=== PATIENT | male | born 1945 | race Asian ===

== ENCOUNTER 2016-10-07 02:08 | Inpatient (IN) | payer MEDICARE, OTHER ==
[~2016-10-07] VITALS: Ht 170.2 cm; Wt 58.7 kg
[~2016-10-07 02:08] MED LIST: ACET-784 GT; AMLO2.5T29 PO; AMOX200S7 PO; ASPI-891 PO; AUD NEB; BENZ1TAB10 GT; BISA10S PR; FAMO-136 PO; FERSL GT; GUAI100S13 GT; IPRNEB IH; K1015L PO; LANS30TA4 GT; LEVO500 PO; LORA0.5T2 PO; MOM30 PO; MULT-1238 PO; ONDA4 PO; PRED5 PO; PROP1DRO OU; RAMI5CAP21 GT; RISP0.5T13 GT; RISP0.5T5 GT; ROSU5TAB3 GT; VITAD1000 GT; ZOLP5 GT; [UNRECOGNIZED DRUG - CODE] GT
[2016-10-07] MEDS ORDERED: SODIUM CHLORIDE 0.9% 500 ML IV ONE ×2 (02:15→03:30)
[2016-10-07] MEDS ORDERED: ACETAMINOPHEN 1000 MG/ISO-OSM 100 ML IV ONE (02:15)
[2016-10-07] MEDS ORDERED: DEXL30CA3 PO (02:25)
[2016-10-07] MEDS ORDERED: CLON.1 PO (02:25)
[2016-10-07] MEDS ORDERED: CEFX1I IV (02:25)
[2016-10-07] MEDS ORDERED: 0.9% SODIUM CHLORIDE 5 ML NEB SOLUTION NEB ONE (02:28)
[2016-10-07 02:29] LABS: BASOPHILS # (AUTO) 0.02 K/uL (0.00-0.20); BASOPHILS % (AUTO) 0.2 % (0.0-2.0); EOSINOPHILS # (AUTO) 0.01 K/uL (0.00-0.70); HEMATOCRIT 36.4 % (41-53); HEMOGLOBIN 12.2 g/dL (13.5-17.5); LYMPHOCYTES # (AUTO) 1.9 K/uL (1.0-4.8); LYMPHOCYTES % (AUTO) 15.1 % (22.0-44.0); MEAN CORPUSCULAR HEMOGLOBIN 31.5 pg (26.0-34.0); MEAN CORPUSCULAR HGB CONC 33.5 G/dL (31.0-37.0); MEAN CORPUSCULAR VOLUME 94 fL (80-100); MONOCYTES # (AUTO) 0.7 K/uL (0.1-1.0); MONOCYTES % (AUTO) 5.2 % (2.0-9.0); NEUTROPHILS # (AUTO) 9.9 K/uL (1.8-7.7); NEUTROPHILS % (AUTO) 79.4 % (40.0-70.0); PLATELET COUNT (AUTO) 169 K/uL (150-450); RED BLOOD CELL COUNT(AUTO) 3.88 MIL/uL (4.50-5.90); RED CELL DISTRIBUTION WIDTH 12.4 % (11.5-14.5); WHITE BLOOD COUNT (AUTO) 12.4 K/uL (4.5-11.0)
[2016-10-07] MEDS ORDERED: IPRATROPIUM BROMIDE 0.5 MG/2.5 ML NEB SOLUTION NEB ONE (02:30)
[2016-10-07] MEDS ORDERED: ALBUTEROL SULFATE 5 MG/ML 20 ML NEB SOLN [BULK] NEB ONE (02:30)
[2016-10-07 02:40] LABS: ANION GAP 11 mmol/L (8-16); CARBON DIOXIDE 24 mmol/L (22-29); CHLORIDE 105 mmol/L (98-107); CREATININE 2.38 mg/dL (0.60-1.30); GLOMERULAR FILTR. RATE CALC 27 mL/min (>60); POTASSIUM 3.5 mmol/L (3.5-5.1); SODIUM SERUM 140 mmol/L (136-145); UREA NITROGEN, BLOOD 43 mg/dL (7-18)
[2016-10-07 02:48] LABS: LACTIC ACID 1.5 mmol/L (0.4-2.0)
[2016-10-07 02:51] LABS: B-TYPE NATRIURETIC PEPTIDE 358 pg/mL (0-100)
[2016-10-07 03:03] LABS: OCCULT BLOOD STOOL SINGLE ONLY NEGATIVE (NEGATIVE)
[2016-10-07 03:05] LABS: ALANINE AMINOTRANSFERASE 27 U/L (12-78); ALBUMIN 2.7 g/dL (3.4-5.0); ASPARTATE AMINOTRANSFERASE 35 U/L (15-37); BILIRUBIN,TOTAL 0.6 mg/dL (0.1-1.0); CREATINE KINASE, TOTAL 566 U/L (39-308); TOTAL PROTEIN, SERUM 6.2 g/dL (6.4-8.2)
[2016-10-07] MEDS ORDERED: PIPERACILLIN/TAZO 3.375 GM/D5W 50 ML IV ONE (03:30)
[2016-10-07] MEDS ORDERED: LEVOFLOXACIN 750 MG/D5% WATER 150 ML IV ONE (03:30)
[2016-10-07] MEDS ORDERED: 0.9% SODIUM CHLORIDE 10 ML SYRINGE IVP PRN (04:30)
[2016-10-07] MEDS ORDERED: ONDANSETRON HCL 4 MG/2 ML VIAL IVP PRN ×3 (04:30→11:00)
[2016-10-07] MEDS ORDERED: ACETAMINOPHEN 325 MG TABLET PO PRN (04:30)
[2016-10-07 05:04] VITALS: BP 108/52
[2016-10-07] MEDS: IPRATROPIUM BROMIDE 0.5 MG/2.5 ML NEB SOLUTION NEB SCH ×6 (07:24→23:07)
[2016-10-07] MEDS: ALBUTEROL SULFATE 2.5 MG/0.5 ML NEB SOLUTION NEB SCH ×6 (07:25→23:07)
[2016-10-07 07:29] VITALS: BP 121/98
[2016-10-07] MEDS ORDERED: ACETAMINOPHEN 650 MG RECTAL SUPPOSITORY PR PRN (10:15)
[2016-10-07] MEDS ORDERED: BISACODYL 10 MG RECTAL RECTAL SUPPOSITORY PR PRN (11:00)
[2016-10-07 11:17] VITALS: BP 135/52
[2016-10-07 11:25] LABS: ADD UA MICROSCOPIC YES; APPEARANCE,URINE TURBID (CLEAR); GLUCOSE, URINE (UA) 100 mg/dL (NEGATIVE); KETONES,URINE 40 mg/dL (NEGATIVE); LEUKOCYTE ESTERASE ,URINE LARGE (NEGATIVE); OCCULT BLOOD,URINE LARGE (NEGATIVE); PH,URINE 7.5 (5.0-8.0); PROTEIN,URINE SEE CONFIRM (NEGATIVE)
[2016-10-07 11:30] LABS: SULFOSALICYLIC ACID,URINE 4+ (Negative)
[2016-10-07 11:36] LABS: RBC,URINE Full Field /HPF (0-2); SQUAMOUS EPITHELIAL CELL,UR Few /LPF (None Seen)
[2016-10-07] MEDS ORDERED: HEPARIN SODIUM,PORCINE 5,000 UNITS/ML VIAL SQ SCH ×2 (12:00→16:00)
[2016-10-07] MEDS ORDERED: VANCOMYCIN HCL 1 GM/D5% WATER 200 ML IV ONE (13:00)
[2016-10-07] MEDS ORDERED: SODIUM CHLORIDE 0.9% 50 ML ONE (13:23)
[2016-10-07] MEDS: PIPERACILLIN SODIUM/TAZOBACTAM 2.25 GM in DEXTROSE 5%-WATER 50 ML IV SCH ×2 (13:29→17:09)
[2016-10-07] MEDS ORDERED: SODIUM CHLORIDE 0.9% 1,000 ML IV SCH (15:15)
[2016-10-07 15:45] VITALS: BP 113/71
[2016-10-07] MEDS ORDERED: FUROSEMIDE 20 MG/2 ML VIAL IVP ONE (16:00)
[2016-10-07] MEDS: MethylPREDNISolone SOD SUCC 40 MG/ML VIAL IVP SCH (16:58)
[2016-10-07] MEDS ORDERED: HEPARIN SODIUM,PORCINE 5,000 UNITS/ML VIAL IVP PRN ×2 (17:30)
[2016-10-07 18:20] LABS: BASOPHILS % (AUTO) 0.2 % (0.0-2.0); EOSINOPHILS % (AUTO) 0.1 % (1.0-6.0); HEMATOCRIT 32.9 % (41-53); HEMOGLOBIN 10.9 g/dL (13.5-17.5); LYMPHOCYTES # (AUTO) 1.3 K/uL (1.0-4.8); LYMPHOCYTES % (AUTO) 10.7 % (22.0-44.0); MEAN CORPUSCULAR HEMOGLOBIN 31.3 pg (26.0-34.0); MEAN CORPUSCULAR HGB CONC 33.2 G/dL (31.0-37.0); MEAN CORPUSCULAR VOLUME 94 fL (80-100); MONOCYTES # (AUTO) 0.8 K/uL (0.1-1.0); MONOCYTES % (AUTO) 6.6 % (2.0-9.0); NEUTROPHILS % (AUTO) 82.4 % (40.0-70.0); PLATELET COUNT (AUTO) 151 K/uL (150-450); RED BLOOD CELL COUNT(AUTO) 3.49 MIL/uL (4.50-5.90); RED CELL DISTRIBUTION WIDTH 12.7 % (11.5-14.5); WHITE BLOOD COUNT (AUTO) 12.2 K/uL (4.5-11.0)
[2016-10-07] MEDS: ASPIRIN 81 MG CHEWABLE TABLET PO SCH (18:30)
[2016-10-07 18:50] LABS: INR 1.1 (0.9-1.1); PROTHROMBIN TIME 11.3 SEC (9.4-11.6)
[2016-10-07 20:16] VITALS: BP 131/65
[2016-10-07] MEDS: [UNRECOGNIZED DRUG - REMARK] GT SCH ×2 (21:00→21:44)
[2016-10-07] MEDS: HEPARIN SODIUM 25000 UNITS/D5W 250 ML IV PRN (21:34)
[2016-10-07] MEDS: BUDESONIDE 0.5 MG/2 ML NEB SOLUTION NEB SCH (23:06)
[2016-10-07 23:45] VITALS: BP 118/58
[2016-10-08] MEDS: MethylPREDNISolone SOD SUCC 40 MG/ML VIAL IVP SCH ×3 (00:06→17:54)
[2016-10-08] MEDS: PIPERACILLIN SODIUM/TAZOBACTAM 2.25 GM in DEXTROSE 5%-WATER 50 ML IV SCH ×4 (00:07→18:03)
[2016-10-08 00:38] LABS: ABG BASE EXCESS -2.3 mmol/L (-2.0-3.0); ABG HCO3 22.8 mmol/L (22.0-26.0); ABG OXYHEMOGLOBIN 92.6 % (94.0-100.0); ABG PCO2 37 mmHg (35-45); ABG PH 7.405 (7.35-7.450)
[2016-10-08 00:43] LABS: ALLEN TEST, BLOOD GAS Positive; IPAP, BG 14 cm H2O
[2016-10-08] MEDS: ALBUTEROL SULFATE 2.5 MG/0.5 ML NEB SOLUTION NEB SCH ×6 (02:29→22:51)
[2016-10-08] MEDS: IPRATROPIUM BROMIDE 0.5 MG/2.5 ML NEB SOLUTION NEB SCH ×6 (02:29→22:51)
[2016-10-08 03:00] VITALS: BP 113/65
[2016-10-08 04:40] LABS: EOSINOPHILS % (AUTO) 0 % (1.0-6.0); HEMATOCRIT 33.9 % (41-53); HEMOGLOBIN 11.2 g/dL (13.5-17.5); LYMPHOCYTES # (AUTO) 0.7 K/uL (1.0-4.8); LYMPHOCYTES % (AUTO) 5.5 % (22.0-44.0); MEAN CORPUSCULAR HEMOGLOBIN 31.5 pg (26.0-34.0); MEAN CORPUSCULAR HGB CONC 33.1 G/dL (31.0-37.0); MEAN CORPUSCULAR VOLUME 95 fL (80-100); MONOCYTES # (AUTO) 0.1 K/uL (0.1-1.0); MONOCYTES % (AUTO) 0.7 % (2.0-9.0); NEUTROPHILS # (AUTO) 11.5 K/uL (1.8-7.7); PLATELET COUNT (AUTO) 163 K/uL (150-450); RED BLOOD CELL COUNT(AUTO) 3.56 MIL/uL (4.50-5.90); RED CELL DISTRIBUTION WIDTH 12.8 % (11.5-14.5); WHITE BLOOD COUNT (AUTO) 12.2 K/uL (4.5-11.0)
[2016-10-08 04:42] LABS: NEUTROPHILS % (AUTO) 93.8 % (40.0-70.0)
[2016-10-08 04:48] LABS: ALBUMIN 2.3 g/dL (3.4-5.0); BILIRUBIN,TOTAL 0.6 mg/dL (0.1-1.0); CREATININE 2.97 mg/dL (0.60-1.30); TOTAL PROTEIN, SERUM 5.9 g/dL (6.4-8.2)
[2016-10-08 04:54] LABS: POTASSIUM 3.2 mmol/L (3.5-5.1)
[2016-10-08 05:06] LABS: CHOL/HDL RATIO 5.6 (4.2-7.3); CREATINE KINASE MB 8.3 ng/mL (0-5); MAGNESIUM 2.2 mg/dL (1.80-2.40); THYROID STIMULATING HORMONE 1.11 uIU/mL (0.36-3.74)
[2016-10-08] MEDS: BUDESONIDE 0.5 MG/2 ML NEB SOLUTION NEB SCH ×2 (07:32→20:06)
[2016-10-08 07:44] VITALS: BP 107/68
[2016-10-08] MEDS ORDERED: VANCOMYCIN HCL 750 MG in DEXTROSE 5%-WATER 150 ML IV SCH (08:00)
[2016-10-08] MEDS ORDERED: FUROSEMIDE 20 MG/2 ML VIAL IVP SCH (09:00)
[2016-10-08] MEDS: PANTOPRAZOLE SODIUM 40 MG/VIAL IVP SCH (09:19)
[2016-10-08] MEDS: ASPIRIN 81 MG CHEWABLE TABLET PO SCH (09:20)
[2016-10-08] MEDS: BENZTROPINE MESYLATE 1 MG TABLET GT SCH (09:21)
[2016-10-08] MEDS: [UNRECOGNIZED DRUG - REMARK] GT SCH ×2 (09:21→21:06)
[2016-10-08] MEDS: METOPROLOL TARTRATE 25 MG TABLET PO SCH ×2 (09:54→21:07)
[2016-10-08] MEDS: PredniSONE 5 MG TABLET PO SCH (09:54)
[2016-10-08] MEDS: PRAVASTATIN SODIUM 20 MG TABLET PO SCH (09:54)
[2016-10-08] MEDS: POTASSIUM CHL 20 MEQ/0.45% NS 1,000 ML IV SCH (09:55)
[2016-10-08 10:05] LABS: PROCALCITONIN (PCT) 177.6 ng/mL (<0.50)
[2016-10-08 11:10] VITALS: BP 21/53
[2016-10-08 15:29] VITALS: BP 115/68
[2016-10-08] MEDS: NITROGLYCERIN 2% (1 GM=INCH) PACKET TP SCH (17:53)
[2016-10-08] MEDS: LORazepam 0.5 MG TABLET PO PRN (18:13)
[2016-10-08 19:45] VITALS: BP 102/50
[2016-10-08 23:42] VITALS: BP 116/63
[2016-10-09] MEDS: NITROGLYCERIN 2% (1 GM=INCH) PACKET TP SCH ×3 (00:04→18:13)
[2016-10-09] MEDS: PIPERACILLIN SODIUM/TAZOBACTAM 2.25 GM in DEXTROSE 5%-WATER 50 ML IV SCH ×4 (00:05→18:13)
[2016-10-09] MEDS: POTASSIUM CHL 20 MEQ/0.45% NS 1,000 ML IV SCH ×2 (00:05→18:13)
[2016-10-09] MEDS: HEPARIN SODIUM 25000 UNITS/D5W 250 ML IV PRN (02:20)
[2016-10-09] MEDS: LEVOFLOXACIN 500 MG/D5% WATER 100 ML IV SCH (02:21)
[2016-10-09] MEDS: ALBUTEROL SULFATE 2.5 MG/0.5 ML NEB SOLUTION NEB SCH ×6 (02:28→22:36)
[2016-10-09] MEDS: IPRATROPIUM BROMIDE 0.5 MG/2.5 ML NEB SOLUTION NEB SCH ×6 (02:28→22:36)
[2016-10-09 04:54] VITALS: BP 121/58
[2016-10-09 07:43] LABS: EOSINOPHILS % (AUTO) 0 % (1.0-6.0); HEMATOCRIT 31.1 % (41-53); HEMOGLOBIN 10.4 g/dL (13.5-17.5); LYMPHOCYTES # (AUTO) 0.8 K/uL (1.0-4.8); LYMPHOCYTES % (AUTO) 5.6 % (22.0-44.0); MEAN CORPUSCULAR HEMOGLOBIN 31.6 pg (26.0-34.0); MEAN CORPUSCULAR HGB CONC 33.5 G/dL (31.0-37.0); MEAN CORPUSCULAR VOLUME 94 fL (80-100); MONOCYTES # (AUTO) 0.4 K/uL (0.1-1.0); MONOCYTES % (AUTO) 2.6 % (2.0-9.0); NEUTROPHILS # (AUTO) 13.3 K/uL (1.8-7.7); NEUTROPHILS % (AUTO) 91.8 % (40.0-70.0); PLATELET COUNT (AUTO) 168 K/uL (150-450); RED CELL DISTRIBUTION WIDTH 12.6 % (11.5-14.5); WHITE BLOOD COUNT (AUTO) 14.5 K/uL (4.5-11.0)
[2016-10-09 08:13] LABS: ALBUMIN 2.2 g/dL (3.4-5.0); BILIRUBIN,TOTAL 0.4 mg/dL (0.1-1.0); CALCIUM, TOTAL 7.6 mg/dL (8.8-10.5); MAGNESIUM 2.3 mg/dL (1.80-2.40); POTASSIUM 3.6 mmol/L (3.5-5.1); TOTAL PROTEIN, SERUM 5.2 g/dL (6.4-8.2)
[2016-10-09] MEDS: BUDESONIDE 0.5 MG/2 ML NEB SOLUTION NEB SCH ×2 (08:14→20:00)
[2016-10-09 08:20] VITALS: BP 137/76
[2016-10-09] MEDS ORDERED: SODIUM CHLORIDE 0.45% 1,000 ML IV ONE (09:15)
[2016-10-09] MEDS: METOPROLOL TARTRATE 25 MG TABLET PO SCH ×2 (10:10→21:23)
[2016-10-09] MEDS: LORazepam 0.5 MG TABLET PO PRN ×2 (10:10→18:11)
[2016-10-09] MEDS: PANTOPRAZOLE SODIUM 40 MG/VIAL IVP SCH (10:11)
[2016-10-09] MEDS: BENZTROPINE MESYLATE 1 MG TABLET GT SCH (10:11)
[2016-10-09] MEDS: ASPIRIN 81 MG CHEWABLE TABLET PO SCH (10:11)
[2016-10-09] MEDS: PRAVASTATIN SODIUM 20 MG TABLET PO SCH (10:24)
[2016-10-09] MEDS: PredniSONE 5 MG TABLET PO SCH (10:25)
[2016-10-09 12:32] VITALS: BP 110/54
[2016-10-09 16:06] VITALS: BP 119/68
[2016-10-09] MEDS ORDERED: SODIUM CHLORIDE 0.9% 100 ML ONE (17:33)
[2016-10-09 19:43] VITALS: BP 121/69
[2016-10-09] MEDS ORDERED: [UNRECOGNIZED DRUG - REMARK] GT SCH (21:00)
[2016-10-09] MEDS: [UNRECOGNIZED DRUG - REMARK] GT SCH (21:23)
[2016-10-09 23:46] VITALS: BP 119/58
[2016-10-10] MEDS: NITROGLYCERIN 2% (1 GM=INCH) PACKET TP SCH ×3 (00:22→17:29)
[2016-10-10] MEDS: PIPERACILLIN SODIUM/TAZOBACTAM 2.25 GM in DEXTROSE 5%-WATER 50 ML IV SCH (00:22)
[2016-10-10] MEDS: IPRATROPIUM BROMIDE 0.5 MG/2.5 ML NEB SOLUTION NEB SCH ×5 (02:00→19:00)
[2016-10-10] MEDS: ALBUTEROL SULFATE 2.5 MG/0.5 ML NEB SOLUTION NEB SCH ×5 (02:00→19:00)
[2016-10-10 04:21] VITALS: BP 147/65
[2016-10-10 06:32] LABS: BASOPHILS % (AUTO) 0.3 % (0.0-2.0); EOSINOPHILS % (AUTO) 0 % (1.0-6.0); HEMATOCRIT 32.4 % (41-53); HEMOGLOBIN 10.9 g/dL (13.5-17.5); LYMPHOCYTES # (AUTO) 1.3 K/uL (1.0-4.8); LYMPHOCYTES % (AUTO) 11.2 % (22.0-44.0); MEAN CORPUSCULAR HEMOGLOBIN 31.3 pg (26.0-34.0); MEAN CORPUSCULAR HGB CONC 33.6 G/dL (31.0-37.0); MEAN CORPUSCULAR VOLUME 93 fL (80-100); MONOCYTES # (AUTO) 0.7 K/uL (0.1-1.0); MONOCYTES % (AUTO) 6.2 % (2.0-9.0); NEUTROPHILS # (AUTO) 9.4 K/uL (1.8-7.7); NEUTROPHILS % (AUTO) 82.3 % (40.0-70.0); PLATELET COUNT (AUTO) 180 K/uL (150-450); RED BLOOD CELL COUNT(AUTO) 3.47 MIL/uL (4.50-5.90); RED CELL DISTRIBUTION WIDTH 12.6 % (11.5-14.5); WHITE BLOOD COUNT (AUTO) 11.4 K/uL (4.5-11.0)
[2016-10-10 06:56] LABS: ALBUMIN 2.2 g/dL (3.4-5.0); BILIRUBIN,TOTAL 0.4 mg/dL (0.1-1.0); CALCIUM, TOTAL 7.9 mg/dL (8.8-10.5); CREATININE 2.62 mg/dL (0.60-1.30); MAGNESIUM 2.3 mg/dL (1.80-2.40); POTASSIUM 3.5 mmol/L (3.5-5.1); TOTAL PROTEIN, SERUM 5.6 g/dL (6.4-8.2)
[2016-10-10] MEDS: BUDESONIDE 0.5 MG/2 ML NEB SOLUTION NEB SCH ×2 (07:50→21:00)
[2016-10-10] MEDS: BENZTROPINE MESYLATE 1 MG TABLET GT SCH (09:20)
[2016-10-10] MEDS: METOPROLOL TARTRATE 25 MG TABLET PO SCH ×2 (09:21→21:00)
[2016-10-10] MEDS: [UNRECOGNIZED DRUG - REMARK] GT SCH ×2 (09:22→21:03)
[2016-10-10] MEDS: PANTOPRAZOLE SODIUM 40 MG/VIAL IVP SCH (09:22)
[2016-10-10] MEDS: ASPIRIN 81 MG CHEWABLE TABLET PO SCH (09:23)
[2016-10-10] MEDS: PRAVASTATIN SODIUM 20 MG TABLET PO SCH (09:23)
[2016-10-10] MEDS: PredniSONE 5 MG TABLET PO SCH (09:23)
[2016-10-10 11:31] VITALS: BP 140/75
[2016-10-10] MEDS: POTASSIUM CHL 20 MEQ/0.45% NS 1,000 ML IV SCH (13:37)
[2016-10-10 15:20] VITALS: BP 137/85
[2016-10-10 20:36] VITALS: BP 143/76
[2016-10-10] MEDS: LORazepam 0.5 MG TABLET PO PRN (22:13)
[2016-10-11] VITALS (7 sets, daily range): BP systolic 119–163; BP diastolic 57–83
[2016-10-11] MEDS: ALBUTEROL SULFATE 2.5 MG/0.5 ML NEB SOLUTION NEB SCH ×7 (00:08→23:07)
[2016-10-11] MEDS: IPRATROPIUM BROMIDE 0.5 MG/2.5 ML NEB SOLUTION NEB SCH ×7 (00:08→23:07)
[2016-10-11] MEDS: NITROGLYCERIN 2% (1 GM=INCH) PACKET TP SCH ×4 (00:28→23:41)
[2016-10-11] MEDS: POTASSIUM CHL 20 MEQ/0.45% NS 1,000 ML IV SCH (03:02)
[2016-10-11] MEDS: LEVOFLOXACIN 500 MG/D5% WATER 100 ML IV SCH (03:02)
[2016-10-11 06:45] LABS: CALCIUM, TOTAL 7.9 mg/dL (8.8-10.5); CREATININE 2.08 mg/dL (0.60-1.30); POTASSIUM 4.3 mmol/L (3.5-5.1)
[2016-10-11] MEDS: BUDESONIDE 0.5 MG/2 ML NEB SOLUTION NEB SCH ×2 (07:22→19:36)
[2016-10-11 08:12] LABS: PROCALCITONIN (PCT) 22.95 ng/mL (<0.50)
[2016-10-11] MEDS: [UNRECOGNIZED DRUG - REMARK] GT SCH (08:40)
[2016-10-11] MEDS: PANTOPRAZOLE SODIUM 40 MG/VIAL IVP SCH (08:41)
[2016-10-11] MEDS: PredniSONE 5 MG TABLET PO SCH (08:41)
[2016-10-11] MEDS: PRAVASTATIN SODIUM 20 MG TABLET PO SCH (08:41)
[2016-10-11] MEDS: METOPROLOL TARTRATE 25 MG TABLET PO SCH ×2 (09:00→20:22)
[2016-10-11] MEDS ORDERED: CloNIDine HCL 0.1 MG TABLET PO PRN (09:15)
[2016-10-11] MEDS: ASPIRIN 81 MG CHEWABLE TABLET PO SCH (11:34)
[2016-10-11] MEDS: BENZTROPINE MESYLATE 1 MG TABLET GT SCH (11:34)
[2016-10-11 14:13] LABS: CREATININE, URINE (mALB) 115.7 mg/dL (Not Estab.)
[2016-10-11] MEDS: LORazepam 0.5 MG TABLET PO PRN (16:23)
[2016-10-11] MEDS: RisperiDONE 0.5 MG TABLET PO SCH (20:22)
[2016-10-11] MEDS ORDERED: [UNRECOGNIZED DRUG - REMARK] GT SCH (21:00)
[2016-10-12] MEDS: POTASSIUM CHL 20 MEQ/0.45% NS 1,000 ML IV SCH (02:21)
[2016-10-12] MEDS: IPRATROPIUM BROMIDE 0.5 MG/2.5 ML NEB SOLUTION NEB SCH ×4 (02:28→15:46)
[2016-10-12] MEDS: ALBUTEROL SULFATE 2.5 MG/0.5 ML NEB SOLUTION NEB SCH ×4 (02:28→15:46)
[2016-10-12 04:00] VITALS: BP 141/56
[2016-10-12 07:13] VITALS: BP 154/74
[2016-10-12] MEDS: BUDESONIDE 0.5 MG/2 ML NEB SOLUTION NEB SCH (08:04)
[2016-10-12 08:54] LABS: BASOPHILS % (AUTO) 0.5 % (0.0-2.0); EOSINOPHILS % (AUTO) 4.8 % (1.0-6.0); HEMATOCRIT 35.9 % (41-53); HEMOGLOBIN 12.1 g/dL (13.5-17.5); LYMPHOCYTES # (AUTO) 2.4 K/uL (1.0-4.8); LYMPHOCYTES % (AUTO) 21.2 % (22.0-44.0); MEAN CORPUSCULAR HEMOGLOBIN 31.5 pg (26.0-34.0); MEAN CORPUSCULAR HGB CONC 33.8 G/dL (31.0-37.0); MEAN CORPUSCULAR VOLUME 93 fL (80-100); MONOCYTES # (AUTO) 0.7 K/uL (0.1-1.0); MONOCYTES % (AUTO) 6.2 % (2.0-9.0); NEUTROPHILS # (AUTO) 7.7 K/uL (1.8-7.7); NEUTROPHILS % (AUTO) 67.3 % (40.0-70.0); PLATELET COUNT (AUTO) 223 K/uL (150-450); RED BLOOD CELL COUNT(AUTO) 3.86 MIL/uL (4.50-5.90); RED CELL DISTRIBUTION WIDTH 12.9 % (11.5-14.5); WHITE BLOOD COUNT (AUTO) 11.5 K/uL (4.5-11.0)
[2016-10-12 09:07] LABS: CALCIUM, TOTAL 8.3 mg/dL (8.8-10.5); CREATININE 2.02 mg/dL (0.60-1.30); MAGNESIUM 1.7 mg/dL (1.80-2.40); PHOSPHORUS 3.6 mg/dL (2.5-4.9); POTASSIUM 4.3 mmol/L (3.5-5.1)
[2016-10-12] MEDS ORDERED: DEXTROSE 5%-WATER 1,000 ML IV SCH (10:00)
[2016-10-12] MEDS ORDERED: MAGNESIUM SULFATE 3 GM in DEXTROSE 5%-WATER 100 ML IV ONE (10:15)
[2016-10-12] MEDS: [UNRECOGNIZED DRUG - REMARK] GT SCH (10:38)
[2016-10-12] MEDS: NITROGLYCERIN 2% (1 GM=INCH) PACKET TP SCH (10:38)
[2016-10-12] MEDS: ASPIRIN 81 MG CHEWABLE TABLET PO SCH (10:42)
[2016-10-12] MEDS: PANTOPRAZOLE SODIUM 40 MG/VIAL IVP SCH (10:42)
[2016-10-12] MEDS: BENZTROPINE MESYLATE 1 MG TABLET GT SCH (10:43)
[2016-10-12] MEDS: PRAVASTATIN SODIUM 20 MG TABLET PO SCH (10:43)
[2016-10-12] MEDS: RisperiDONE 0.5 MG TABLET PO SCH (10:43)
[2016-10-12] MEDS: PredniSONE 5 MG TABLET PO SCH (10:43)
[2016-10-12] MEDS: METOPROLOL TARTRATE 25 MG TABLET PO SCH (10:43)
[2016-10-12 11:03] VITALS: BP 129/83
[2016-10-12] MEDS ORDERED: FURO20 PO (11:13)
[2016-10-12] MEDS ORDERED: A20IH1 IH (11:16)
[2016-10-12] MEDS ORDERED: AUD NEB (11:17)
[2016-10-12] MEDS ORDERED: ASPI81TA2 PO (11:17)
[2016-10-12] MEDS: LORazepam 0.5 MG TABLET PO PRN (11:24)
[2016-10-12] MEDS ORDERED: MAGNESIUM OXIDE 400 MG TABLET PO ONE (11:30)
[2016-10-12] MEDS ORDERED: BUDE0.5A3 NEB (11:41)
[2016-10-12] MEDS ORDERED: CYCL100L PO ×2 (11:43→11:44)
[2016-10-12] MEDS ORDERED: IPRNEB IH (11:45)
[2016-10-12] MEDS ORDERED: LEVO500 PO (11:47)
[2016-10-12] MEDS ORDERED: METO25 PO (11:48)
[2016-10-12] MEDS ORDERED: PANT40TA25 PO (11:49)
[2016-10-12] MEDS ORDERED: PRAV20TA4 PO (11:50)
[2016-10-12] MEDS ORDERED: PRED5 PO (11:50)
[2016-10-12 15:15] VITALS: BP 156/76
[2016-10-13 08:37] LABS: BK VIRUS QUANT LOG 10 2.491
== END 2016-10-12 16:00 | DRG 871 ==
LOC: EMS 02:10 → 5N 04:36
PROVIDERS: ADMIT Internal Medicine Geriatric Medicine; ATTEND Internal Medicine Geriatric Medicine
PROC: 5A09457 Assistance with Respiratory Ventilation, 24-96 Consecutive Hours, Continuous Positive Airway Pressure (ICD-10-PCS; principal; 2016-10-07)
DX: A41.9 Sepsis, unspecified organism (principal); I21.4 Non-ST elevation (NSTEMI) myocardial infarction; I50.33 Acute on chronic diastolic (congestive) heart failure; J18.9 Pneumonia, unspecified organism; N18.6 End stage renal disease; E43 Unspecified severe protein-calorie malnutrition; J96.90 Respiratory failure, unspecified, unspecified whether with hypoxia or hypercapnia; J18.0 Bronchopneumonia, unspecified organism; N17.9 Acute kidney failure, unspecified; N39.0 Urinary tract infection, site not specified; N13.8 Other obstructive and reflux uropathy; I13.2 Hypertensive heart and chronic kidney disease with heart failure and with stage 5 chronic kidney disease, or end stage renal disease; E87.0 Hyperosmolality and hypernatremia; I47.1 Supraventricular tachycardia; I69.351 Hemiplegia and hemiparesis following cerebral infarction affecting right dominant side; J98.11 Atelectasis; R64 Cachexia; Z94.0 Kidney transplant status; I69.354 Hemiplegia and hemiparesis following cerebral infarction affecting left non-dominant side; Z66 Do not resuscitate; I25.10 Atherosclerotic heart disease of native coronary artery without angina pectoris; K21.9 Gastro-esophageal reflux disease without esophagitis; B96.4 Proteus (mirabilis) (morganii) as the cause of diseases classified elsewhere; E78.5 Hyperlipidemia, unspecified; N40.1 Benign prostatic hyperplasia with lower urinary tract symptoms; E11.22 Type 2 diabetes mellitus with diabetic chronic kidney disease; D64.9 Anemia, unspecified; I70.0 Atherosclerosis of aorta; R13.10 Dysphagia, unspecified; B96.89 Other specified bacterial agents as the cause of diseases classified elsewhere; T38.0X5A Adverse effect of glucocorticoids and synthetic analogues, initial encounter; X58.XXXA Exposure to other specified factors, initial encounter; E83.42 Hypomagnesemia; R26.9 Unspecified abnormalities of gait and mobility; E78.00 Pure hypercholesterolemia, unspecified; Z79.899 Other long term (current) drug therapy; Z95.1 Presence of aortocoronary bypass graft; Z93.1 Gastrostomy status; Z87.891 Personal history of nicotine dependence; Z68.20 Body mass index [BMI] 20.0-20.9, adult; Y93.89 Activity, other specified; Y92.89 Other specified places as the place of occurrence of the external cause; Y99.8 Other external cause status; Z95.5 Presence of coronary angioplasty implant and graft; Z87.01 Personal history of pneumonia (recurrent)
CPT/HCPCS: 51702; 71250; 76770; 80158; 82043; 82271; 82306; 82570; 82607; 82746; 82805; 83036; 83605; 83735; 84100; 84145; 84156; 84300; 84439; 84443; 84540; 87040; 87081; 87086; 87324; 87449; 87799; 92526; 92610; 93005; 93306; 94640; 94644; 94660; 96365; 96367; 96368; 99285; C9113; J0131; J1644; J1940; J1956; J2543; J2920; J3370; J3475; J3480; J7040; J7050; J7060; J7502

== ENCOUNTER 2016-10-15 14:51 | Inpatient (IN) | payer MEDICARE, MEDICAID ==
[~2016-10-15] VITALS: Ht 172.7 cm; Wt 57.3 kg
[~2016-10-15 14:51] MED LIST changes: -AMLO2.5T29 PO; -AMOX200S7 PO; -ASPI-891 PO; +ASPI81TA2 PO; +BUDE0.5A3 NEB; +CLON.1 PO; +CYCL100L PO; -FAMO-136 PO; -FERSL GT; +FURO20 PO; -GUAI100S13 GT; -K1015L PO; -LANS30TA4 GT; -LORA0.5T2 PO; +METO25 PO; -MOM30 PO; -MULT-1238 PO; -ONDA4 PO; +PANT40TA25 PO; +PRAV20TA4 PO; -PROP1DRO OU; -RAMI5CAP21 GT; -RISP0.5T13 GT; -ROSU5TAB3 GT; -VITAD1000 GT; -ZOLP5 GT; -[UNRECOGNIZED DRUG - CODE] GT
[2016-10-15] MEDS ORDERED: LORA0.5T2 PO (15:02)
[2016-10-15 15:29] LABS: BASOPHILS % (AUTO) 3.5 % (0.0-2.0); EOSINOPHILS % (AUTO) 1.8 % (1.0-6.0); HEMATOCRIT 35.6 % (41-53); HEMOGLOBIN 11.9 g/dL (13.5-17.5); LYMPHOCYTES # (AUTO) 1.1 K/uL (1.0-4.8); LYMPHOCYTES % (AUTO) 8.7 % (22.0-44.0); MEAN CORPUSCULAR HEMOGLOBIN 31.1 pg (26.0-34.0); MEAN CORPUSCULAR HGB CONC 33.4 G/dL (31.0-37.0); MEAN CORPUSCULAR VOLUME 93 fL (80-100); MONOCYTES # (AUTO) 0.7 K/uL (0.1-1.0); MONOCYTES % (AUTO) 5.9 % (2.0-9.0); NEUTROPHILS # (AUTO) 9.8 K/uL (1.8-7.7); NEUTROPHILS % (AUTO) 80.1 % (40.0-70.0); PLATELET COUNT (AUTO) 256 K/uL (150-450); RED BLOOD CELL COUNT(AUTO) 3.82 MIL/uL (4.50-5.90); RED CELL DISTRIBUTION WIDTH 12.9 % (11.5-14.5); WHITE BLOOD COUNT (AUTO) 12.2 K/uL (4.5-11.0)
[2016-10-15 15:37] LABS: ANION GAP 11 mmol/L (8-16); CALCIUM, TOTAL 7.9 mg/dL (8.8-10.5); CARBON DIOXIDE 25 mmol/L (22-29); CHLORIDE 114 mmol/L (98-107); CREATININE 2.57 mg/dL (0.60-1.30); GLOMERULAR FILTR. RATE CALC 25 mL/min (>60); POTASSIUM 4.8 mmol/L (3.5-5.1); SODIUM SERUM 150 mmol/L (136-145); UREA NITROGEN, BLOOD 46 mg/dL (7-18)
[2016-10-15 15:56] LABS: B-TYPE NATRIURETIC PEPTIDE 379 pg/mL (0-100)
[2016-10-15 16:05] LABS: ALANINE AMINOTRANSFERASE 45 U/L (12-78); ALBUMIN 2.5 g/dL (3.4-5.0); ASPARTATE AMINOTRANSFERASE 24 U/L (15-37); BILIRUBIN,TOTAL 0.3 mg/dL (0.1-1.0); CREATINE KINASE MB 1.4 ng/mL (0-5); CREATINE KINASE, TOTAL 167 U/L (39-308); TOTAL PROTEIN, SERUM 5.9 g/dL (6.4-8.2)
[2016-10-15] MEDS ORDERED: SODIUM CHLORIDE 0.9% 100 ML ONE (16:20)
[2016-10-15] MEDS ORDERED: IOVERSOL 350 MG/ML 100 ML VIAL ONE (16:20)
[2016-10-15 16:31] LABS: PROTHROMBIN TIME 10.7 SEC (9.4-11.6)
[2016-10-15] MEDS ORDERED: DiphenhydrAMINE HCL 50 MG/ML VIAL IVP ONE (17:45)
[2016-10-15 17:58] LABS: APPEARANCE,URINE CLOUDY (CLEAR); GLUCOSE, URINE (UA) NEGATIVE (NEGATIVE); KETONES,URINE NEGATIVE (NEGATIVE); LEUKOCYTE ESTERASE ,URINE SMALL (NEGATIVE); OCCULT BLOOD,URINE LARGE (NEGATIVE); PROTEIN,URINE SEE CONFIRM (NEGATIVE)
[2016-10-15 18:06] LABS: ADD UA MICROSCOPIC YES
[2016-10-15 18:07] LABS: RBC,URINE >100 /HPF (0-2); SQUAMOUS EPITHELIAL CELL,UR Rare /LPF (None Seen); SULFOSALICYLIC ACID,URINE 3+ (Negative)
[2016-10-15 20:17] VITALS: BP 149/76
[2016-10-15] MEDS ORDERED: IPRATROPIUM BROMIDE 0.5 MG/2.5 ML NEB SOLUTION NEB PRN (20:30)
[2016-10-15] MEDS ORDERED: CloNIDine HCL 0.1 MG TABLET PO PRN (20:30)
[2016-10-15] MEDS ORDERED: ACETAMINOPHEN 325 MG TABLET PO PRN (20:30)
[2016-10-15] MEDS ORDERED: ALBUTEROL SULFATE 2.5 MG/0.5 ML NEB SOLUTION NEB PRN (20:30)
[2016-10-15] MEDS ORDERED: BISACODYL 10 MG RECTAL RECTAL SUPPOSITORY PR PRN (20:30)
[2016-10-15] MEDS ORDERED: BUDESONIDE 0.5 MG/2 ML NEB SOLUTION NEB SCH (21:00)
[2016-10-15] MEDS: RisperiDONE 0.5 MG TABLET PO SCH (21:00)
[2016-10-15] MEDS: PRAVASTATIN SODIUM 20 MG TABLET PO SCH (21:00)
[2016-10-15] MEDS: METOPROLOL TARTRATE 25 MG TABLET PO SCH (21:00)
[2016-10-16] VITALS (7 sets, daily range): BP systolic 123–163; BP diastolic 61–78
[2016-10-16 06:25] LABS: BASOPHILS % (AUTO) 0.4 % (0.0-2.0); EOSINOPHILS % (AUTO) 2.6 % (1.0-6.0); HEMATOCRIT 34.6 % (41-53); HEMOGLOBIN 11.9 g/dL (13.5-17.5); LYMPHOCYTES # (AUTO) 1.9 K/uL (1.0-4.8); LYMPHOCYTES % (AUTO) 14.7 % (22.0-44.0); MEAN CORPUSCULAR HEMOGLOBIN 31.7 pg (26.0-34.0); MEAN CORPUSCULAR HGB CONC 34.3 G/dL (31.0-37.0); MEAN CORPUSCULAR VOLUME 92 fL (80-100); MONOCYTES % (AUTO) 7.6 % (2.0-9.0); NEUTROPHILS # (AUTO) 9.8 K/uL (1.8-7.7); NEUTROPHILS % (AUTO) 74.7 % (40.0-70.0); PLATELET COUNT (AUTO) 258 K/uL (150-450); RED BLOOD CELL COUNT(AUTO) 3.75 MIL/uL (4.50-5.90); RED CELL DISTRIBUTION WIDTH 12.8 % (11.5-14.5); WHITE BLOOD COUNT (AUTO) 13.1 K/uL (4.5-11.0)
[2016-10-16 06:37] LABS: CALCIUM, TOTAL 8.1 mg/dL (8.8-10.5); CREATININE 2.33 mg/dL (0.60-1.30); POTASSIUM 3.7 mmol/L (3.5-5.1)
[2016-10-16] MEDS: LORazepam 0.5 MG TABLET PO PRN ×2 (08:46→15:06)
[2016-10-16] MEDS: PredniSONE 5 MG TABLET PO SCH (08:46)
[2016-10-16] MEDS: ASPIRIN 81 MG CHEWABLE TABLET PO SCH (08:46)
[2016-10-16] MEDS: METOPROLOL TARTRATE 25 MG TABLET PO SCH ×2 (08:46→21:25)
[2016-10-16] MEDS: BENZTROPINE MESYLATE 1 MG TABLET PO SCH (08:46)
[2016-10-16] MEDS: [UNRECOGNIZED DRUG - REMARK] PO SCH ×2 (08:47→21:24)
[2016-10-16] MEDS ORDERED: FUROSEMIDE 20 MG TABLET PO SCH (09:00)
[2016-10-16] MEDS ORDERED: BUDESONIDE 0.5 MG/2 ML NEB SOLUTION NEB PRN (09:00)
[2016-10-16] MEDS ORDERED: PANTOPRAZOLE SODIUM 40 MG DR TABLET PO SCH (09:00)
[2016-10-16] MEDS ORDERED: ONDANSETRON HCL 4 MG/2 ML VIAL IVP PRN (11:00)
[2016-10-16] MEDS ORDERED: ALBUTEROL SULFATE 2.5 MG/0.5 ML NEB SOLUTION NEB PRN (11:00)
[2016-10-16] MEDS: HEPARIN SODIUM,PORCINE 5,000 UNITS/ML VIAL SQ SCH ×2 (11:00→23:33)
[2016-10-16] MEDS ORDERED: 0.9% SODIUM CHLORIDE 10 ML SYRINGE IVP PRN (11:00)
[2016-10-16] MEDS ORDERED: HYDROCODONE/ACETAMINOPHEN 5-325 MG TABLET PO PRN (11:00)
[2016-10-16] MEDS ORDERED: ACETAMINOPHEN 325 MG TABLET PO PRN (11:00)
[2016-10-16] MEDS ORDERED: SODIUM CHLORIDE 0.9% 1,000 ML IV SCH (11:30)
[2016-10-16] MEDS ORDERED: DEXTROSE 5%-WATER 1,000 ML IV ONE (14:30)
[2016-10-16] MEDS: DOCUSATE SODIUM 250 MG CAPSULE PO SCH ×2 (16:00→21:24)
[2016-10-16 16:05] LABS: CREATININE 2.34 mg/dL (0.60-1.30); MAGNESIUM 2.3 mg/dL (1.80-2.40); POTASSIUM 4.1 mmol/L (3.5-5.1)
[2016-10-16] MEDS: PRAVASTATIN SODIUM 20 MG TABLET PO SCH (21:25)
[2016-10-16] MEDS: RisperiDONE 0.5 MG TABLET PO SCH (23:32)
[2016-10-16] MEDS: DEXTROSE 5%-WATER 1,000 ML IV SCH (23:32)
[2016-10-17] VITALS (8 sets, daily range): BP systolic 134–162; BP diastolic 59–83
[2016-10-17] MEDS: CefTRIAXone 1 GM/DEXTROSE 50 ML IV SCH (01:08)
[2016-10-17 02:15] LABS: APPEARANCE,URINE CLOUDY (CLEAR); GLUCOSE, URINE (UA) NEGATIVE (NEGATIVE); KETONES,URINE NEGATIVE (NEGATIVE); LEUKOCYTE ESTERASE ,URINE SMALL (NEGATIVE); OCCULT BLOOD,URINE LARGE (NEGATIVE); PROTEIN,URINE SEE CONFIRM (NEGATIVE)
[2016-10-17 02:16] LABS: ADD UA MICROSCOPIC YES
[2016-10-17 02:37] LABS: SULFOSALICYLIC ACID,URINE 2+ (Negative)
[2016-10-17 02:39] LABS: RBC,URINE >100 /HPF (0-2); SQUAMOUS EPITHELIAL CELL,UR Rare /LPF (None Seen)
[2016-10-17 07:02] LABS: HEMOGLOBIN A1C 5.4 % (4.5-6.2)
[2016-10-17 07:15] LABS: PROCALCITONIN (PCT) 0.42 ng/mL (<0.50)
[2016-10-17] MEDS: METOPROLOL TARTRATE 25 MG TABLET PO SCH ×2 (08:19→20:57)
[2016-10-17] MEDS: BENZTROPINE MESYLATE 1 MG TABLET PO SCH (08:19)
[2016-10-17] MEDS: FAMOTIDINE 20 MG TABLET PO SCH (08:20)
[2016-10-17] MEDS: ASPIRIN 81 MG CHEWABLE TABLET PO SCH (08:20)
[2016-10-17] MEDS: [UNRECOGNIZED DRUG - REMARK] PO SCH ×2 (08:21→20:56)
[2016-10-17] MEDS: DOCUSATE SODIUM 250 MG CAPSULE PO SCH ×3 (08:28→20:57)
[2016-10-17] MEDS: PredniSONE 5 MG TABLET PO SCH (08:28)
[2016-10-17 09:32] LABS: BASOPHILS % (AUTO) 0.5 % (0.0-2.0); EOSINOPHILS % (AUTO) 4.9 % (1.0-6.0); HEMATOCRIT 31.1 % (41-53); HEMOGLOBIN 10.7 g/dL (13.5-17.5); LYMPHOCYTES # (AUTO) 2.1 K/uL (1.0-4.8); LYMPHOCYTES % (AUTO) 28.2 % (22.0-44.0); MEAN CORPUSCULAR HGB CONC 34.4 G/dL (31.0-37.0); MEAN CORPUSCULAR VOLUME 93 fL (80-100); MONOCYTES # (AUTO) 0.6 K/uL (0.1-1.0); MONOCYTES % (AUTO) 8.5 % (2.0-9.0); NEUTROPHILS # (AUTO) 4.2 K/uL (1.8-7.7); NEUTROPHILS % (AUTO) 57.9 % (40.0-70.0); PLATELET COUNT (AUTO) 227 K/uL (150-450); RED BLOOD CELL COUNT(AUTO) 3.35 MIL/uL (4.50-5.90); WHITE BLOOD COUNT (AUTO) 7.3 K/uL (4.5-11.0)
[2016-10-17 11:21] LABS: CALCIUM, TOTAL 7.6 mg/dL (8.8-10.5); CREATININE 1.95 mg/dL (0.60-1.30); POTASSIUM 3.6 mmol/L (3.5-5.1)
[2016-10-17] MEDS: DEXTROSE 5%-WATER 1,000 ML IV SCH (12:12)
[2016-10-17] MEDS: HEPARIN SODIUM,PORCINE 5,000 UNITS/ML VIAL SQ SCH ×2 (12:12→23:23)
[2016-10-17] MEDS: LORazepam 0.5 MG TABLET PO PRN ×2 (12:59→20:57)
[2016-10-17] MEDS ORDERED: LORazepam 0.5 MG TABLET PO ONE (16:15)
[2016-10-17] MEDS: PRAVASTATIN SODIUM 20 MG TABLET PO SCH (20:57)
[2016-10-17] MEDS: RisperiDONE 0.5 MG TABLET PO SCH (20:57)
[2016-10-18] VITALS (7 sets, daily range): BP systolic 121–153; BP diastolic 59–81
[2016-10-18] MEDS: CefTRIAXone 1 GM/DEXTROSE 50 ML IV SCH (01:00)
[2016-10-18] MEDS: DEXTROSE 5%-WATER 1,000 ML IV SCH (04:18)
[2016-10-18] MEDS: FAMOTIDINE 20 MG TABLET PO SCH (08:58)
[2016-10-18] MEDS: PredniSONE 5 MG TABLET PO SCH (08:58)
[2016-10-18] MEDS: ASPIRIN 81 MG CHEWABLE TABLET PO SCH (08:58)
[2016-10-18] MEDS: BENZTROPINE MESYLATE 1 MG TABLET PO SCH (08:58)
[2016-10-18] MEDS: METOPROLOL TARTRATE 25 MG TABLET PO SCH ×2 (08:59→20:25)
[2016-10-18] MEDS: [UNRECOGNIZED DRUG - REMARK] PO SCH ×2 (08:59→20:25)
[2016-10-18] MEDS: DOCUSATE SODIUM 250 MG CAPSULE PO SCH ×3 (09:00→20:25)
[2016-10-18 09:02] LABS: ALBUMIN 2.1 g/dL (3.4-5.0); BILIRUBIN,TOTAL 0.3 mg/dL (0.1-1.0); CALCIUM, TOTAL 7.4 mg/dL (8.8-10.5); CREATININE 1.73 mg/dL (0.60-1.30); POTASSIUM 3.4 mmol/L (3.5-5.1); TOTAL PROTEIN, SERUM 5.5 g/dL (6.4-8.2)
[2016-10-18] MEDS ORDERED: SESTAMIBI TC99M/UD ISOTOPE 1 EA INJ INJ ONE ×2 (10:15→13:40)
[2016-10-18] MEDS ORDERED: POTASSIUM CHLORIDE 10% 40 MEQ/30 ML LIQUID UDCUP PO ONE (10:30)
[2016-10-18] MEDS: LORazepam 0.5 MG TABLET PO PRN (12:29)
[2016-10-18] MEDS ORDERED: REGADENOSON 0.4 MG/5 ML PF SYRINGE IVP ONE ×2 (13:39→16:37)
[2016-10-18] MEDS ORDERED: AMINOPHYLLINE 25 MG/ML 10 ML VIAL IVP ONE ×2 (13:42→16:37)
[2016-10-18] MEDS: LORazepam 2 MG/ML VIAL IVP PRN ×2 (15:37→20:26)
[2016-10-18] MEDS: HEPARIN SODIUM,PORCINE 5,000 UNITS/ML VIAL SQ SCH (15:40)
[2016-10-18] MEDS: PRAVASTATIN SODIUM 20 MG TABLET PO SCH (20:25)
[2016-10-18] MEDS: RisperiDONE 0.5 MG TABLET PO SCH (20:25)
[2016-10-19] VITALS (7 sets, daily range): BP systolic 124–165; BP diastolic 66–97
[2016-10-19] MEDS: HEPARIN SODIUM,PORCINE 5,000 UNITS/ML VIAL SQ SCH ×3 (00:33→23:00)
[2016-10-19] MEDS: CefTRIAXone 1 GM/DEXTROSE 50 ML IV SCH (02:07)
[2016-10-19 07:58] LABS: ALBUMIN 2.2 g/dL (3.4-5.0); BILIRUBIN,TOTAL 0.4 mg/dL (0.1-1.0); CREATININE 1.69 mg/dL (0.60-1.30); POTASSIUM 4.7 mmol/L (3.5-5.1); TOTAL PROTEIN, SERUM 5.7 g/dL (6.4-8.2)
[2016-10-19] MEDS: PredniSONE 5 MG TABLET PO SCH (08:35)
[2016-10-19] MEDS: METOPROLOL TARTRATE 25 MG TABLET PO SCH ×2 (08:35→23:26)
[2016-10-19] MEDS: BENZTROPINE MESYLATE 1 MG TABLET PO SCH (08:35)
[2016-10-19] MEDS: FAMOTIDINE 20 MG TABLET PO SCH (08:35)
[2016-10-19] MEDS: ASPIRIN 81 MG CHEWABLE TABLET PO SCH (08:35)
[2016-10-19] MEDS: [UNRECOGNIZED DRUG - REMARK] PO SCH ×2 (08:36→23:27)
[2016-10-19] MEDS: DOCUSATE SODIUM 250 MG CAPSULE PO SCH ×3 (08:36→21:00)
[2016-10-19] MEDS: LORazepam 2 MG/ML VIAL IVP PRN ×2 (10:24→19:11)
[2016-10-19] MEDS ORDERED: DEXTROSE 5%-WATER 500 ML IV ONE (11:00)
[2016-10-19] MEDS: PRAVASTATIN SODIUM 20 MG TABLET PO SCH (23:26)
[2016-10-19] MEDS: RisperiDONE 0.5 MG TABLET PO SCH (23:26)
[2016-10-20] MEDS: LORazepam 2 MG/ML VIAL IVP PRN ×2 (02:08→14:36)
[2016-10-20 04:44] VITALS: BP 145/80
[2016-10-20 06:42] LABS: BASOPHILS # (AUTO) 0.14 K/uL (0.00-0.20); BASOPHILS % (AUTO) 1.6 % (0.0-2.0); EOSINOPHILS # (AUTO) 0.29 K/uL (0.00-0.70); EOSINOPHILS % (AUTO) 3.46 % (1.0-6.0); HEMATOCRIT 35.9 % (41-53); HEMOGLOBIN 11.8 g/dL (13.5-17.5); LYMPHOCYTES # (AUTO) 2.3 K/uL (1.0-4.8); LYMPHOCYTES % (AUTO) 27.6 % (22.0-44.0); MEAN CORPUSCULAR HEMOGLOBIN 30.8 pg (26.0-34.0); MEAN CORPUSCULAR HGB CONC 32.7 G/dL (31.0-37.0); MEAN CORPUSCULAR VOLUME 94 fL (80-100); MONOCYTES # (AUTO) 0.7 K/uL (0.1-1.0); MONOCYTES % (AUTO) 8.5 % (2.0-9.0); NEUTROPHILS % (AUTO) 58.8 % (40.0-70.0); PLATELET COUNT (AUTO) 233 K/uL (150-450); RED BLOOD CELL COUNT(AUTO) 3.82 MIL/uL (4.50-5.90); RED CELL DISTRIBUTION WIDTH 12.7 % (11.5-14.5); WHITE BLOOD COUNT (AUTO) 8.5 K/uL (4.5-11.0)
[2016-10-20 07:13] LABS: ALBUMIN 2.4 g/dL (3.4-5.0); BILIRUBIN,TOTAL 0.4 mg/dL (0.1-1.0); CALCIUM, TOTAL 8.3 mg/dL (8.8-10.5); CREATININE 1.79 mg/dL (0.60-1.30); POTASSIUM 3.9 mmol/L (3.5-5.1); TOTAL PROTEIN, SERUM 5.9 g/dL (6.4-8.2)
[2016-10-20 08:13] VITALS: BP 141/75
[2016-10-20] MEDS: FAMOTIDINE 20 MG TABLET PO SCH (09:43)
[2016-10-20] MEDS: PredniSONE 5 MG TABLET PO SCH (09:43)
[2016-10-20] MEDS: ASPIRIN 81 MG CHEWABLE TABLET PO SCH (09:43)
[2016-10-20] MEDS: METOPROLOL TARTRATE 25 MG TABLET PO SCH ×2 (09:43→21:49)
[2016-10-20] MEDS: DOCUSATE SODIUM 250 MG CAPSULE PO SCH ×3 (09:44→21:49)
[2016-10-20] MEDS: [UNRECOGNIZED DRUG - REMARK] PO SCH ×2 (09:44→22:52)
[2016-10-20] MEDS: BENZTROPINE MESYLATE 1 MG TABLET PO SCH (09:44)
[2016-10-20] MEDS: HEPARIN SODIUM,PORCINE 5,000 UNITS/ML VIAL SQ SCH ×2 (11:00→23:05)
[2016-10-20 12:03] VITALS: BP 138/85
[2016-10-20 16:06] VITALS: BP 154/83
[2016-10-20 20:15] VITALS: BP 152/81
[2016-10-20] MEDS: PRAVASTATIN SODIUM 20 MG TABLET PO SCH (21:49)
[2016-10-20] MEDS: RisperiDONE 0.5 MG TABLET PO SCH (22:52)
[2016-10-20 23:07] VITALS: BP_SYST 165; BP_SYST 172; BP_DIAS 65; BP_DIAS 72
[2016-10-21 04:30] VITALS: BP 164/86
[2016-10-21 08:13] VITALS: BP 165/64
[2016-10-21] MEDS: BENZTROPINE MESYLATE 1 MG TABLET PO SCH (09:08)
[2016-10-21] MEDS: PredniSONE 5 MG TABLET PO SCH (09:08)
[2016-10-21] MEDS: METOPROLOL TARTRATE 25 MG TABLET PO SCH (09:08)
[2016-10-21] MEDS: DOCUSATE SODIUM 250 MG CAPSULE PO SCH (09:08)
[2016-10-21] MEDS: ASPIRIN 81 MG CHEWABLE TABLET PO SCH (09:08)
[2016-10-21] MEDS: [UNRECOGNIZED DRUG - REMARK] PO SCH (09:09)
[2016-10-21] MEDS: FAMOTIDINE 20 MG TABLET PO SCH (09:09)
[2016-10-21 09:23] LABS: ALBUMIN 2.6 g/dL (3.4-5.0); BILIRUBIN,TOTAL 0.5 mg/dL (0.1-1.0); CALCIUM, TOTAL 8.3 mg/dL (8.8-10.5); CREATININE 1.76 mg/dL (0.60-1.30); POTASSIUM 3.3 mmol/L (3.5-5.1); TOTAL PROTEIN, SERUM 6.3 g/dL (6.4-8.2)
[2016-10-21] MEDS: LORazepam 0.5 MG TABLET PO PRN (10:43)
[2016-10-21] MEDS ORDERED: POTASSIUM CHLORIDE 20 MEQ ER TABLET PO ONE (11:15)
[2016-10-21 11:31] VITALS: BP 157/73
[2016-10-21 11:35] VITALS: BP 139/68
[2016-10-21] MEDS: HEPARIN SODIUM,PORCINE 5,000 UNITS/ML VIAL SQ SCH (11:44)
[2016-10-21 12:26] LABS: BK VIRUS QUANT LOG 10 2.806
[2016-10-21] MEDS ORDERED: LORA-192 PO (14:07)
[2016-10-21] MEDS ORDERED: DOCU250C91 PO (14:08)
[2016-10-21] MEDS ORDERED: FAMO20 PO (14:09)
[2016-10-21] MEDS ORDERED: AMLO-511 PO (14:10)
[2016-10-21] MEDS ORDERED: ONDA4 PO (14:10)
[2016-10-21] MEDS ORDERED: HYDR-3965 PO (14:12)
== END 2016-10-21 15:20 | DRG 871 ==
LOC: EMS 14:53 → 5N 17:49
PROVIDERS: ADMIT Internal Medicine; ATTEND Internal Medicine
DX: A41.9 Sepsis, unspecified organism (principal); I62.03 Nontraumatic chronic subdural hemorrhage; E43 Unspecified severe protein-calorie malnutrition; G45.9 Transient cerebral ischemic attack, unspecified; E87.0 Hyperosmolality and hypernatremia; I69.354 Hemiplegia and hemiparesis following cerebral infarction affecting left non-dominant side; Z94.0 Kidney transplant status; E46 Unspecified protein-calorie malnutrition; I47.2 Ventricular tachycardia; I50.32 Chronic diastolic (congestive) heart failure; N39.0 Urinary tract infection, site not specified; I13.2 Hypertensive heart and chronic kidney disease with heart failure and with stage 5 chronic kidney disease, or end stage renal disease; Z68.1 Body mass index [BMI] 19.9 or less, adult; N17.9 Acute kidney failure, unspecified; D64.9 Anemia, unspecified; E11.21 Type 2 diabetes mellitus with diabetic nephropathy; E78.00 Pure hypercholesterolemia, unspecified; E78.5 Hyperlipidemia, unspecified; E87.6 Hypokalemia; F03.90 Unspecified dementia, unspecified severity, without behavioral disturbance, psychotic disturbance, mood disturbance, and anxiety; I25.10 Atherosclerotic heart disease of native coronary artery without angina pectoris; K14.8 Other diseases of tongue; K21.9 Gastro-esophageal reflux disease without esophagitis; N40.0 Benign prostatic hyperplasia without lower urinary tract symptoms; R56.9 Unspecified convulsions; Z66 Do not resuscitate; B96.4 Proteus (mirabilis) (morganii) as the cause of diseases classified elsewhere; E11.22 Type 2 diabetes mellitus with diabetic chronic kidney disease; E86.0 Dehydration; I69.320 Aphasia following cerebral infarction; Z82.49 Family history of ischemic heart disease and other diseases of the circulatory system; Z83.3 Family history of diabetes mellitus; Z87.01 Personal history of pneumonia (recurrent); Z93.1 Gastrostomy status; Z95.1 Presence of aortocoronary bypass graft; Z95.5 Presence of coronary angioplasty implant and graft; R47.1 Dysarthria and anarthria; I25.2 Old myocardial infarction; R26.9 Unspecified abnormalities of gait and mobility
CPT/HCPCS: 70496; 70551; 76770; 80158; 82570; 83036; 83735; 84145; 84156; 84295; 84300; 87081; 87086; 87799; 92526; 92610; 93005; 93017; 94660; 96374; 97116; 97163; 97530; 99291; A9500; J0280; J0696; J1200; J1644; J2060; J2785; J7030; J7050; J7060; J7502

== ENCOUNTER 2017-11-30 02:47 | Emergency (ER) | payer MEDICARE, MEDICAID ==
[~2017-11-30] VITALS: Ht 160 cm; Wt 50.0 kg
[~2017-11-30 02:47] MED LIST changes: -ACET-784 GT; +ACID1GRA PO; +AMLO-511 PO; +ASPI-989 PO; -ASPI81TA2 PO; -BENZ1TAB10 GT; +BENZ1TAB10 PO; -BUDE0.5A3 NEB; -CLON.1 PO; +DSS100 PO; +FAMO20 PO; -FURO20 PO; +LEVE500T53 PO; -LEVO500 PO; +LORA0.5T2 PO; +MOM30 PO; +MULT-1239 PO; +ONDA4 PO; -PANT40TA25 PO; -PRAV20TA4 PO; -RISP0.5T5 GT; +RISP0.5T5 PO
[2017-11-30 03:24] LABS: GLUCOSE,POINT OF CARE 88 MG/DL (70-110)
[2017-11-30 04:24] LABS: BASOPHILS % (AUTO) 0.9 % (0.0-2.0); EOSINOPHILS % (AUTO) 5.7 % (1.0-6.0); HEMATOCRIT 31.6 % (41-53); HEMOGLOBIN 10.7 g/dL (13.5-17.5); LYMPHOCYTES # (AUTO) 1.9 K/uL (1.0-4.8); MEAN CORPUSCULAR HEMOGLOBIN 32.5 pg (26.0-34.0); MEAN CORPUSCULAR VOLUME 96 fL (80-100); MONOCYTES # (AUTO) 0.5 K/uL (0.1-1.0); MONOCYTES % (AUTO) 8.2 % (2.0-9.0); NEUTROPHILS # (AUTO) 3.8 K/uL (1.8-7.7); NEUTROPHILS % (AUTO) 56.2 % (40.0-70.0); PLATELET COUNT (AUTO) 148 K/uL (150-450); RED BLOOD CELL COUNT(AUTO) 3.31 MIL/uL (4.50-5.90); RED CELL DISTRIBUTION WIDTH 13.4 % (11.5-14.5)
[2017-11-30 04:26] LABS: APPEARANCE,URINE CLEAR (CLEAR); BILIRUBIN,URINE NEGATIVE (NEGATIVE); GLUCOSE, URINE (UA) NEGATIVE (NEGATIVE); KETONES,URINE NEGATIVE (NEGATIVE); LEUKOCYTE ESTERASE ,URINE NEGATIVE (NEGATIVE); NITRATE,URINE NEGATIVE (NEGATIVE); OCCULT BLOOD,URINE NEGATIVE (NEGATIVE); PROTEIN,URINE POS 1+ (NEGATIVE)
[2017-11-30 04:31] LABS: ANION GAP 8 mmol/L (8-16); CALCIUM, TOTAL 7.7 mg/dL (8.8-10.5); CARBON DIOXIDE 23 mmol/L (22-29); CHLORIDE 107 mmol/L (98-107); CREATININE 1.72 mg/dL (0.60-1.30); GLOMERULAR FILTR. RATE CALC 39 mL/min (>60); GLUCOSE,RANDOM 100 mg/dL (70-110); POTASSIUM 4.3 mmol/L (3.5-5.1); SODIUM SERUM 138 mmol/L (136-145); UREA NITROGEN, BLOOD 31 mg/dL (7-18)
[2017-11-30 04:31] LABS: AMPHET/METH SCREEN,URINE NEGATIVE (NEGATIVE); BARBITURATE SCREEN, URINE NEGATIVE (NEGATIVE); BENZODIAZEPINES SCREEN,URINE NEGATIVE (NEGATIVE); CANNABINOID SCREEN,URINE NEGATIVE (NEGATIVE); COCAINE SCREEN,URINE NEGATIVE (NEGATIVE); METHADONE SCREEN, URINE NEGATIVE (NEGATIVE); OPIATE SCREEN,URINE NEGATIVE (NEGATIVE); PHENCYCLIDINE SCREEN,URINE NEGATIVE (NEGATIVE)
[2017-11-30 04:36] LABS: ALANINE AMINOTRANSFERASE 13 U/L (12-78); ALBUMIN 2.2 g/dL (3.4-5.0); ALKALINE PHOSPHATASE 125 U/L (46-116); ASPARTATE AMINOTRANSFERASE 17 U/L (15-37); BILIRUBIN,TOTAL 0.3 mg/dL (0.1-1.0); LIPASE 394 U/L (73-393); TOTAL PROTEIN, SERUM 5.6 g/dL (6.4-8.2)
[2017-11-30 04:37] LABS: BACTERIA,URINE None Seen /HPF (None Seen); RBC,URINE None Seen /HPF (0-2); WBC,URINE None Seen /HPF (0-5)
[2017-11-30 05:07] VITALS: BP 127/72
== END 2017-11-30 06:00 | disposition home or self-care (01) ==
LOC: EMS 02:55
DX: R45.1 Restlessness and agitation (principal); F03.90 Unspecified dementia, unspecified severity, without behavioral disturbance, psychotic disturbance, mood disturbance, and anxiety; F41.9 Anxiety disorder, unspecified; I11.0 Hypertensive heart disease with heart failure; I50.9 Heart failure, unspecified; I25.10 Atherosclerotic heart disease of native coronary artery without angina pectoris; I25.2 Old myocardial infarction; E11.9 Type 2 diabetes mellitus without complications; E78.00 Pure hypercholesterolemia, unspecified; Z86.73 Personal history of transient ischemic attack (TIA), and cerebral infarction without residual deficits; Z79.82 Long term (current) use of aspirin; Z79.84 Long term (current) use of oral hypoglycemic drugs; Z91.011 Allergy to milk products; Z87.440 Personal history of urinary (tract) infections
CPT/HCPCS: 36415; 51701; 80053; 80307; 81001; 82962; 83690; 84484; 85025; 93005; 99285; G0480

== ENCOUNTER 2018-01-11 16:37 | Inpatient (IN) | payer MEDICARE, MEDICAID ==
[~2018-01-11] VITALS: Ht 157.5 cm; Wt 53.7 kg
[2018-01-11 16:49] LABS: GLUCOSE,POINT OF CARE 135 MG/DL (70-110)
[2018-01-11] MEDS ORDERED: ONDANSETRON HCL 4 MG/2 ML VIAL IVP ONE (17:00)
[2018-01-11] MEDS ORDERED: ACETAMINOPHEN 1000 MG/ISO-OSM 100 ML IV ONE (17:00)
[2018-01-11] MEDS ORDERED: SODIUM CHLORIDE 0.9% 2,000 ML IV ONE (17:00)
[2018-01-11] MEDS ORDERED: MORPHINE SULFATE 2 MG/ML SYRINGE IVP ONE (17:00)
[2018-01-11 17:04] LABS: BASOPHILS % (AUTO) 0.4 % (0.0-2.0); EOSINOPHILS % (AUTO) 1.5 % (1.0-6.0); HEMATOCRIT 35.3 % (41-53); HEMOGLOBIN 11.7 g/dL (13.5-17.5); LYMPHOCYTES # (AUTO) 2.1 K/uL (1.0-4.8); LYMPHOCYTES % (AUTO) 17.4 % (22.0-44.0); MEAN CORPUSCULAR HEMOGLOBIN 30.1 pg (26.0-34.0); MEAN CORPUSCULAR HGB CONC 33.1 G/dL (31.0-37.0); MEAN CORPUSCULAR VOLUME 91 fL (80-100); MONOCYTES # (AUTO) 0.2 K/uL (0.1-1.0); NEUTROPHILS # (AUTO) 9.7 K/uL (1.8-7.7); NEUTROPHILS % (AUTO) 78.7 % (40.0-70.0); PLATELET COUNT (AUTO) 258 K/uL (150-450); RED BLOOD CELL COUNT(AUTO) 3.89 MIL/uL (4.50-5.90); RED CELL DISTRIBUTION WIDTH 13.4 % (11.5-14.5)
[2018-01-11] MEDS ORDERED: PIPERACILLIN/TAZO 3.375 GM/D5W 50 ML IV ONE (17:15)
[2018-01-11 17:29] LABS: ANION GAP 13 mmol/L (8-16); B-TYPE NATRIURETIC PEPTIDE 2520 pg/mL (0-100); CALCIUM, TOTAL 7.9 mg/dL (8.8-10.5); CARBON DIOXIDE 23 mmol/L (22-29); CHLORIDE 108 mmol/L (98-107); CREATININE 1.69 mg/dL (0.60-1.30); GLOMERULAR FILTR. RATE CALC 40 mL/min (>60); GLUCOSE,RANDOM 163 mg/dL (70-110); POTASSIUM 3.8 mmol/L (3.5-5.1); SODIUM SERUM 144 mmol/L (136-145); UREA NITROGEN, BLOOD 28 mg/dL (7-18)
[2018-01-11 17:32] LABS: ALANINE AMINOTRANSFERASE 18 U/L (12-78); ALBUMIN 2.6 g/dL (3.4-5.0); ALKALINE PHOSPHATASE 138 U/L (46-116); ASPARTATE AMINOTRANSFERASE 23 U/L (15-37); BILIRUBIN,TOTAL 0.4 mg/dL (0.1-1.0); LIPASE 278 U/L (73-393); TOTAL PROTEIN, SERUM 6.9 g/dL (6.4-8.2)
[2018-01-11 17:39] LABS: LACTIC ACID 3.6 mmol/L (0.4-2.0)
[2018-01-11] MEDS ORDERED: 0.9% SODIUM CHLORIDE 10 ML SYRINGE IVP PRN (17:45)
[2018-01-11] MEDS ORDERED: ACETAMINOPHEN 325 MG TABLET PO PRN (17:45)
[2018-01-11] MEDS ORDERED: ONDANSETRON HCL 4 MG/2 ML VIAL IVP PRN (17:45)
[2018-01-11] MEDS ORDERED: OXYGEN THERAPY IH SCH ×2 (20:00)
[2018-01-11 20:04] VITALS: BP 153/85
[2018-01-11] MEDS ORDERED: ACETAMINOPHEN 650 MG RECTAL SUPPOSITORY PR PRN (22:00)
[2018-01-11 23:33] VITALS: BP 130/72
[2018-01-11] MEDS ORDERED: SODIUM CHLORIDE 0.9% 250 ML IV ONE (23:36)
[2018-01-11] MEDS: PIPERACILLIN/TAZO 3.375 GM/D5W 50 ML IV SCH (23:40)
[2018-01-12 04:53] VITALS: BP 135/65
[2018-01-12 05:45] LABS: BASOPHILS % (AUTO) 0.2 % (0.0-2.0); EOSINOPHILS % (AUTO) 0.8 % (1.0-6.0); HEMATOCRIT 27.8 % (41-53); HEMOGLOBIN 9.3 g/dL (13.5-17.5); LYMPHOCYTES # (AUTO) 1.4 K/uL (1.0-4.8); LYMPHOCYTES % (AUTO) 8.2 % (22.0-44.0); MEAN CORPUSCULAR HEMOGLOBIN 30.1 pg (26.0-34.0); MEAN CORPUSCULAR HGB CONC 33.5 G/dL (31.0-37.0); MEAN CORPUSCULAR VOLUME 90 fL (80-100); MONOCYTES # (AUTO) 0.7 K/uL (0.1-1.0); MONOCYTES % (AUTO) 4.1 % (2.0-9.0); NEUTROPHILS # (AUTO) 14.6 K/uL (1.8-7.7); PLATELET COUNT (AUTO) 185 K/uL (150-450); RED BLOOD CELL COUNT(AUTO) 3.08 MIL/uL (4.50-5.90); RED CELL DISTRIBUTION WIDTH 13.3 % (11.5-14.5)
[2018-01-12 05:54] LABS: HEMOGLOBIN A1C 4.9 % (4.5-6.2); NEUTROPHILS % (AUTO) 86.7 % (40.0-70.0)
[2018-01-12 06:14] LABS: ANION GAP 11 mmol/L (8-16); CALCIUM, TOTAL 7.5 mg/dL (8.8-10.5); CARBON DIOXIDE 24 mmol/L (22-29); CHLORIDE 109 mmol/L (98-107); CHOL/HDL RATIO 2.3 (4.2-7.3); CHOLESTEROL 77 mg/dL (131-200); CREATINE KINASE, TOTAL ONLY 150 U/L (39-308); CREATININE 1.88 mg/dL (0.60-1.30); GLOMERULAR FILTR. RATE CALC 35 mL/min (>60); GLUCOSE,RANDOM 130 mg/dL (70-110); HDL CHOLESTEROL 33 mg/dL (40-60); LDL CHOL (CALC.) 35 mg/dL (0-130); POTASSIUM 3.9 mmol/L (3.5-5.1); SODIUM SERUM 144 mmol/L (136-145); TRIGLYCERIDES 46 mg/dL (15-150); UREA NITROGEN, BLOOD 30 mg/dL (7-18)
[2018-01-12 06:20] LABS: LACTIC ACID 1.2 mmol/L (0.4-2.0)
[2018-01-12] MEDS: PIPERACILLIN/TAZO 3.375 GM/D5W 50 ML IV SCH ×4 (06:24→23:44)
[2018-01-12 08:17] VITALS: BP 125/68
[2018-01-12] MEDS: FUROSEMIDE 20 MG/2 ML VIAL IVP SCH (08:49)
[2018-01-12] MEDS ORDERED: LevETIRAcetam 500 MG TABLET PO SCH (09:00)
[2018-01-12] MEDS: DOCUSATE SODIUM 100 MG CAPSULE PO SCH (11:45)
[2018-01-12] MEDS: PredniSONE 5 MG TABLET PO SCH (11:45)
[2018-01-12] MEDS: ASPIRIN 81 MG CHEWABLE TABLET PO SCH (11:45)
[2018-01-12] MEDS: [UNRECOGNIZED DRUG - REMARK] PO SCH ×2 (11:56→21:38)
[2018-01-12 13:46] LABS: APPEARANCE,URINE CLEAR (CLEAR); BILIRUBIN,URINE NEGATIVE (NEGATIVE); GLUCOSE, URINE (UA) NEGATIVE (NEGATIVE); KETONES,URINE NEGATIVE (NEGATIVE); LEUKOCYTE ESTERASE ,URINE NEGATIVE (NEGATIVE); NITRATE,URINE NEGATIVE (NEGATIVE); OCCULT BLOOD,URINE NEGATIVE (NEGATIVE); PH,URINE 5.5 (5.0-8.0); PROTEIN,URINE POS 1+ (NEGATIVE)
[2018-01-12 13:48] LABS: CREATININE,URINE RANDOM 41.4 mg/dL (30.0-125.0); SODIUM,URINE RANDOM 79 mmol/l (20-110); UREA NITROGEN,URINE RANDOM 392 mg/dL (350-1000)
[2018-01-12 14:30] LABS: BACTERIA,URINE Rare /HPF (None Seen); RBC,URINE None Seen /HPF (0-2); SQUAMOUS EPITHELIAL CELL,UR Rare /LPF (None Seen); WBC,URINE 0-2 /HPF (0-5)
[2018-01-12 16:20] VITALS: BP 155/86
[2018-01-12] MEDS: DOXYCYCLINE HYCLATE 100 MG in DEXTROSE 5%-WATER 100 ML IV SCH (18:05)
[2018-01-12 20:00] VITALS: BP 129/66
[2018-01-12] MEDS: LevETIRAcetam 100 MG/ML 5 ML SOLUTION UDCUP PO SCH (21:37)
[2018-01-12 23:15] VITALS: BP 139/61
[2018-01-13 04:21] VITALS: BP 133/61
[2018-01-13] MEDS: PIPERACILLIN/TAZO 3.375 GM/D5W 50 ML IV SCH ×3 (04:53→17:14)
[2018-01-13 06:28] LABS: HEMATOCRIT 27.7 % (41-53); HEMOGLOBIN 9.5 g/dL (13.5-17.5); MEAN CORPUSCULAR HEMOGLOBIN 31.3 pg (26.0-34.0); MEAN CORPUSCULAR HGB CONC 34.2 G/dL (31.0-37.0); MEAN CORPUSCULAR VOLUME 91 fL (80-100); PLATELET COUNT (AUTO) 182 K/uL (150-450); RED BLOOD CELL COUNT(AUTO) 3.02 MIL/uL (4.50-5.90); RED CELL DISTRIBUTION WIDTH 13.7 % (11.5-14.5)
[2018-01-13] MEDS: DOXYCYCLINE HYCLATE 100 MG in DEXTROSE 5%-WATER 100 ML IV SCH ×2 (06:31→17:43)
[2018-01-13 06:48] LABS: ALBUMIN 1.8 g/dL (3.4-5.0); BILIRUBIN,TOTAL 0.4 mg/dL (0.1-1.0); CALCIUM, TOTAL 7.9 mg/dL (8.8-10.5); MAGNESIUM 1.6 mg/dL (1.80-2.40); POTASSIUM 3.3 mmol/L (3.5-5.1); TOTAL PROTEIN, SERUM 5.6 g/dL (6.4-8.2)
[2018-01-13 07:44] VITALS: BP 127/71
[2018-01-13 07:57] LABS: BAND NEUTROPHILS % (MANUAL) 2 % (0-5); EOSINOPHILS % (MANUAL) 3 % (1-6); LYMPHOCYTES % (MANUAL) 19 % (22-44); MONOCYTES % (MANUAL) 7 % (2-9); SEGMENTED NEUTROPHILS % 69 % (40-70)
[2018-01-13] MEDS: DOCUSATE SODIUM 100 MG CAPSULE PO SCH (08:44)
[2018-01-13] MEDS: ASPIRIN 81 MG CHEWABLE TABLET PO SCH (08:44)
[2018-01-13] MEDS: [UNRECOGNIZED DRUG - REMARK] PO SCH ×2 (08:44→19:47)
[2018-01-13] MEDS: FUROSEMIDE 20 MG/2 ML VIAL IVP SCH (08:45)
[2018-01-13] MEDS: LevETIRAcetam 100 MG/ML 5 ML SOLUTION UDCUP PO SCH ×2 (08:45→19:47)
[2018-01-13] MEDS: PredniSONE 5 MG TABLET PO SCH (08:45)
[2018-01-13] MEDS ORDERED: MAGNESIUM SULFATE 1 GM in DEXTROSE 5%-WATER 50 ML IV ONE (09:00)
[2018-01-13] MEDS ORDERED: POTASSIUM CHLORIDE 20 MEQ ER TABLET PO ONE (09:00)
[2018-01-13] MEDS ORDERED: SODIUM CHLORIDE 0.9% 250 ML IV ONE (09:27)
[2018-01-13 11:04] VITALS: BP 134/76
[2018-01-13] MEDS: EPOETIN ALFA 10,000 UNITS/ML VIAL SQ SCH (13:29)
[2018-01-13 15:10] VITALS: BP 141/78
[2018-01-13 19:28] VITALS: BP 142/85
[2018-01-13 23:50] VITALS: BP 134/77
[2018-01-14] MEDS: PIPERACILLIN/TAZO 3.375 GM/D5W 50 ML IV SCH ×5 (00:14→23:47)
[2018-01-14 04:38] VITALS: BP 155/98
[2018-01-14] MEDS: DOXYCYCLINE HYCLATE 100 MG in DEXTROSE 5%-WATER 100 ML IV SCH (05:56)
[2018-01-14 06:12] LABS: BASOPHILS % (AUTO) 0.8 % (0.0-2.0); EOSINOPHILS % (AUTO) 4.8 % (1.0-6.0); HEMATOCRIT 27.4 % (41-53); HEMOGLOBIN 9.4 g/dL (13.5-17.5); LYMPHOCYTES # (AUTO) 1.8 K/uL (1.0-4.8); LYMPHOCYTES % (AUTO) 25.9 % (22.0-44.0); MEAN CORPUSCULAR HEMOGLOBIN 30.6 pg (26.0-34.0); MEAN CORPUSCULAR HGB CONC 34.1 G/dL (31.0-37.0); MEAN CORPUSCULAR VOLUME 90 fL (80-100); MONOCYTES # (AUTO) 0.5 K/uL (0.1-1.0); MONOCYTES % (AUTO) 6.6 % (2.0-9.0); NEUTROPHILS # (AUTO) 4.3 K/uL (1.8-7.7); NEUTROPHILS % (AUTO) 61.9 % (40.0-70.0); PLATELET COUNT (AUTO) 179 K/uL (150-450); RED BLOOD CELL COUNT(AUTO) 3.06 MIL/uL (4.50-5.90); RED CELL DISTRIBUTION WIDTH 13.6 % (11.5-14.5)
[2018-01-14 07:02] LABS: % IRON SATURATION 19.7 % (30-44)
[2018-01-14 07:07] LABS: CREATININE 1.97 mg/dL (0.60-1.30); MAGNESIUM 1.9 mg/dL (1.80-2.40); PHOSPHORUS 3.1 mg/dL (2.5-4.9); POTASSIUM 3.3 mmol/L (3.5-5.1)
[2018-01-14 07:50] VITALS: BP 151/75
[2018-01-14] MEDS: ASPIRIN 81 MG CHEWABLE TABLET PO SCH (08:24)
[2018-01-14] MEDS: DOCUSATE SODIUM 100 MG CAPSULE PO SCH (08:24)
[2018-01-14] MEDS: LevETIRAcetam 100 MG/ML 5 ML SOLUTION UDCUP PO SCH ×2 (08:24→20:03)
[2018-01-14] MEDS: FUROSEMIDE 20 MG/2 ML VIAL IVP SCH (08:24)
[2018-01-14] MEDS: PredniSONE 5 MG TABLET PO SCH (08:24)
[2018-01-14] MEDS: [UNRECOGNIZED DRUG - REMARK] PO SCH ×2 (08:25→19:59)
[2018-01-14] MEDS ORDERED: POTASSIUM CHLORIDE 20 MEQ ER TABLET PO ONE (08:45)
[2018-01-14 11:43] VITALS: BP 140/84
[2018-01-14] MEDS: SOD FERRIC GLUC COMPLX/SUCROSE 125 MG in SODIUM CHLORIDE 0.9% 100 ML IV SCH (13:57)
[2018-01-14 15:10] VITALS: BP 152/88
[2018-01-14 19:57] VITALS: BP 150/100
[2018-01-14] MEDS: AmLODIPine BESYLATE 5 MG TABLET PO SCH (21:06)
[2018-01-14 23:28] VITALS: BP 157/56
[2018-01-15 04:15] VITALS: BP 159/94
[2018-01-15] MEDS ORDERED: SODIUM CHLORIDE 0.9% 500 ML IV ONE (05:21)
[2018-01-15] MEDS: PIPERACILLIN/TAZO 3.375 GM/D5W 50 ML IV SCH ×2 (06:03→12:00)
[2018-01-15] MEDS ORDERED: SODIUM CL IRRIG SOLN BOTTLE 250 ML IRRIG ONE (06:37)
[2018-01-15] MEDS ORDERED: 0.9% SODIUM CHLORIDE 5 ML NEB SOLUTION NEB ONE (06:59)
[2018-01-15] MEDS: ALBUTEROL SULFATE 2.5 MG/0.5 ML NEB SOLUTION NEB PRN (07:09)
[2018-01-15 07:55] VITALS: BP 145/82
[2018-01-15] MEDS: AmLODIPine BESYLATE 5 MG TABLET PO SCH (08:25)
[2018-01-15] MEDS: DOCUSATE SODIUM 100 MG CAPSULE PO SCH (08:25)
[2018-01-15] MEDS: LevETIRAcetam 100 MG/ML 5 ML SOLUTION UDCUP PO SCH ×2 (08:25→20:45)
[2018-01-15] MEDS: ASPIRIN 81 MG CHEWABLE TABLET PO SCH (08:25)
[2018-01-15] MEDS: [UNRECOGNIZED DRUG - REMARK] PO SCH ×2 (08:26→20:45)
[2018-01-15] MEDS: PredniSONE 5 MG TABLET PO SCH (08:26)
[2018-01-15 12:54] VITALS: BP 151/75
[2018-01-15] MEDS: SOD FERRIC GLUC COMPLX/SUCROSE 125 MG in SODIUM CHLORIDE 0.9% 100 ML IV SCH (14:09)
[2018-01-15] MEDS ORDERED: *CLINICAL-LEVOFLOXACIN IVPB DOSING CLINICAL ONE (14:30)
[2018-01-15] MEDS ORDERED: LEVOFLOXACIN 750 MG/D5% WATER 150 ML IV SCH (15:00)
[2018-01-15 16:28] VITALS: BP 143/73
[2018-01-15 18:15] LABS: CALCIUM, TOTAL 8.3 mg/dL (8.8-10.5); CREATININE 2.02 mg/dL (0.60-1.30); POTASSIUM 3.7 mmol/L (3.5-5.1)
[2018-01-15 20:08] VITALS: BP 148/77
[2018-01-16 00:44] VITALS: BP 142/88
[2018-01-16] MEDS ORDERED: 0.9% SODIUM CHLORIDE 5 ML NEB SOLUTION NEB ONE (05:07)
[2018-01-16] MEDS: ALBUTEROL SULFATE 2.5 MG/0.5 ML NEB SOLUTION NEB PRN (05:07)
[2018-01-16 05:12] VITALS: BP 149/83
[2018-01-16 07:08] LABS: CALCIUM, TOTAL 8.3 mg/dL (8.8-10.5); MAGNESIUM 1.7 mg/dL (1.80-2.40); PHOSPHORUS 2.3 mg/dL (2.5-4.9); POTASSIUM 3.2 mmol/L (3.5-5.1)
[2018-01-16 08:00] VITALS: BP 154/100
[2018-01-16] MEDS: LevETIRAcetam 100 MG/ML 5 ML SOLUTION UDCUP PO SCH (08:17)
[2018-01-16] MEDS: PredniSONE 5 MG TABLET PO SCH (08:17)
[2018-01-16] MEDS: DOCUSATE SODIUM 100 MG CAPSULE PO SCH (08:17)
[2018-01-16] MEDS: ASPIRIN 81 MG CHEWABLE TABLET PO SCH (08:17)
[2018-01-16] MEDS: AmLODIPine BESYLATE 5 MG TABLET PO SCH (08:17)
[2018-01-16] MEDS: [UNRECOGNIZED DRUG - REMARK] PO SCH (08:17)
[2018-01-16] MEDS: EPOETIN ALFA 10,000 UNITS/ML VIAL SQ SCH (08:17)
[2018-01-16 12:00] VITALS: BP 139/77
[2018-01-16 12:14] LABS: LEGIONELLA PNEUMO AG URINE Negative (Negative); ORGANISM ID Not indicated.; S PNEUMO SOURCE Urine; STREP PNEUMONIAE AG URINE Negative (Negative); STREP.PNEUMO BODY FLUID CULT. Not Indicated
[2018-01-16] MEDS ORDERED: SODIUM PHOS,M-BASIC-D-BASIC 20 MMOL in DEXTROSE 5%-WATER 150 ML IV ONE (12:45)
[2018-01-16] MEDS: SOD FERRIC GLUC COMPLX/SUCROSE 125 MG in SODIUM CHLORIDE 0.9% 100 ML IV SCH (13:24)
== END 2018-01-16 15:57 | DRG 871 ==
LOC: EMS 16:38 → 6N 18:08
PROVIDERS: ADMIT Internal Medicine Geriatric Medicine; ATTEND Internal Medicine Geriatric Medicine
PROC: 5A09357 Assistance with Respiratory Ventilation, Less than 24 Consecutive Hours, Continuous Positive Airway Pressure (ICD-10-PCS; principal; 2018-01-11)
PROC: 05HY33Z Insertion of Infusion Device into Upper Vein, Percutaneous Approach (ICD-10-PCS; 2018-01-16)
PROC: B54MZZA Ultrasonography of Right Upper Extremity Veins, Guidance (ICD-10-PCS; 2018-01-16)
DX: A41.9 Sepsis, unspecified organism (principal); J69.0 Pneumonitis due to inhalation of food and vomit; J96.91 Respiratory failure, unspecified with hypoxia; J15.0 Pneumonia due to Klebsiella pneumoniae; N18.6 End stage renal disease; Z94.0 Kidney transplant status; E87.0 Hyperosmolality and hypernatremia; I13.2 Hypertensive heart and chronic kidney disease with heart failure and with stage 5 chronic kidney disease, or end stage renal disease; I69.351 Hemiplegia and hemiparesis following cerebral infarction affecting right dominant side; I69.354 Hemiplegia and hemiparesis following cerebral infarction affecting left non-dominant side; N18.9 Chronic kidney disease, unspecified; D64.9 Anemia, unspecified; Z66 Do not resuscitate; R62.7 Adult failure to thrive; R13.10 Dysphagia, unspecified; E11.22 Type 2 diabetes mellitus with diabetic chronic kidney disease; E78.00 Pure hypercholesterolemia, unspecified; E83.42 Hypomagnesemia; E86.0 Dehydration; E87.6 Hypokalemia; F03.90 Unspecified dementia, unspecified severity, without behavioral disturbance, psychotic disturbance, mood disturbance, and anxiety; G40.909 Epilepsy, unspecified, not intractable, without status epilepticus; I25.10 Atherosclerotic heart disease of native coronary artery without angina pectoris; I50.9 Heart failure, unspecified; K59.00 Constipation, unspecified; K21.9 Gastro-esophageal reflux disease without esophagitis; N40.0 Benign prostatic hyperplasia without lower urinary tract symptoms; Z95.1 Presence of aortocoronary bypass graft; Z93.1 Gastrostomy status; Z91.011 Allergy to milk products
CPT/HCPCS: 36245; 76937; 82570; 83036; 83540; 83550; 83605; 83735; 84100; 84145; 84300; 84540; 85007; 87040; 87070; 87081; 87205; 87449; 87899; 89050; 92526; 92610; 93005; 93306; 93971; 94640; 94799; 96365; 96366; 96368; 96375; 99291; J0131; J0885; J1940; J1956; J2270; J2405; J2543; J2916; J3475; J3490; J7030; J7040; J7050; J7060; J7502